=== PATIENT | male | born 1940 | race Caucasian/White ===

== ENCOUNTER → 2019-11-28 | Outpatient (CLI) | payer MEDICARE ==
[~2019-11-28] MED LIST: AMOX500C PO; ATOR40TA59 PO; CITA20TA6 PO; CLOP75TA PO; CYAN25008 PO; DIGO250T3 PO; GLYB5TAB3 PO; LEVO50TA PO; LOPE2CAP PO; METF500T16 PO; METO50TA6 PO; NIAC500C6 PO; OMEG100021 PO; WARF-31 PO; WARF7.5T45 PO
== END | disposition home or self-care (01) ==
LOC: LAB 11:26
PROVIDERS: ATTEND Dentist Oral and Maxillofacial Surgery
DX: Z11.59 Encounter for screening for other viral diseases (principal)
CPT/HCPCS: U0003-CS

== ENCOUNTER 2019-11-29 11:08 | Day surgery (SDC) | payer MEDICARE ==
[~2019-11-29] VITALS: Ht 165.1 cm; Wt 74.8 kg
[~2019-11-29 11:08] MED LIST changes: +DEXAMETHASONE SOD PHOS 4 MG/ML VIAL ONE; +HYDROmorphone 2 MG/ML VIAL IV PRN; +IV RINGERS,LACTATED 1000ML 1,000 ML IV SCH; +LIDOCAINE 2% PF 5 ML VIAL. ONE; +MORPHINE SULFATE 2 MG/ML VIAL. IV PRN; +ONDANSETRON PF 4 MG/2 ML VIAL. ONE; +PHENYLEPHRINE 0.5% NASAL SPRAY 15ML BOTTLE. NS ONE; +PHENYLEPHRINE 1% NASAL SPRAY 15ML BOTTLE. NS ONE; +PHENYLEPHRINE in 0.9% NACL PF 1 MG/10 ML SYRINGE. IV ONE; +PROCHLORPERAZINE 10 MG/2 ML VIAL. IV PRN; +PROPOFOL 10 MG/ML (20ML) VIAL. IV ONE; +ROCURONIUM 50 MG/5 ML VIAL. ONE; +SEVOFLURANE 61 TO 120 MINUTES. IH ONE; +SUCCINYLCHOLINE 200 MG/10 ML VIAL. ONE; +ePHEDrine PF IN SALINE 50 MG/10 ML SYRINGE. IV ONE; +fentaNYL PF VIAL 100 MCG/2 ML VIAL IV PRN; +fentaNYL PF VIAL 100 MCG/2 ML VIAL ONE
[2019-11-29] MEDS ORDERED: INSULIN LISPRO 100 UNIT/ML 3ML VIAL for OP,RR ONLY. SQ PRN (11:45)
[2019-11-29] MEDS ORDERED: INSULIN LISPRO 100 UNIT/ML 3ML VIAL for OP,RR ONLY. SQ ONE (11:45)
[2019-11-29] MEDS ORDERED: BUPIVACAINE-EPI 0.5%-1:200000 MPF 30 ML VIAL. ONE (11:46)
[2019-11-29] MEDS ORDERED: GELATIN SPONGE SIZE 100. ONE (11:46)
[2019-11-29 12:05] LABS: PROTHROMBIN TIME PATIENT 22.3 SEC (11.7-14.0)
[2019-11-29] MEDS ORDERED: BACITRACIN 50,000 UNIT in IV NORMAL SALINE 500ML BAG 500 ML IRR ONE (14:00)
[2019-11-29] MEDS ORDERED: NEOSTIGMINE METHYLSULFATE 5 MG/5 ML SYRINGE. ONE (14:13)
[2019-11-29] MEDS ORDERED: GLYCOPYRROLATE 1 MG/5 ML VIAL. ONE (14:13)
--- NOTE | 2019-11-29 15:02 | PDOC4 ---
OPERATIVE NOTE Date: Date: Nov 29, 2019 Pre-Op Diagnosis: Aortic stenosis caries, non restorable dentition #3, 5, 7, 10, 13, 14, 18, 29, 30, 31 Post-Op Diagnosis: same Procedure Performed: removal of caries, non restorable dentition #3, 5, 7, 10, 13, 14, 18, 29, 30, 31 Surgeon: philippe Anesthesia Type: monica Blood Loss: 50 Specimans Obtained: none teeth disposed of in OR Findings: see dictation Removal of caries, non restorable dentition #3, 5, 7, 10, 13, 14, 18, 29, 30, 31 Complications: none Operative Note: see JUAN ANTONIO Lozada DMD Nov 29, 2019 15:02
[2019-11-29 16:06] VITALS: BP 149/47
[2019-11-29] MEDS ORDERED: ALBUTEROL SULFATE 2.5 MG/3 ML NEBU. ONE (16:41)
[2019-11-29] MEDS ORDERED: ALBUTEROL SULFATE 2.5 MG/3 ML NEBU. NEB ONE (16:45)
--- NOTE | 2019-11-29 18:03 | OP ---
DATE OF SURGERY: 11/29/2019 OPERATING SERVICE: laminator printed circuit boards. ATTENDING PHYSICIAN: Miller Sears DMD. PREOPERATIVE DIAGNOSES: 1. The patient has severe aortic stenosis with grade 3/6 holosystolic murmur. He has been deemed to have a need for aortic valve replacement intraoperatively here later in November, his cardiac surgeon has requested that this be addressed here urgently and he has nonrestorable teeth that are at risk for infection of the valve. 2. Nonrestorable teeth numbers 3, 5, 7, 10, 13, 14, 18, 29, 30 and 31. POSTOPERATIVE DIAGNOSES: 1. The patient has severe aortic stenosis with grade 3/6 holosystolic murmur. He has been deemed to have a need for aortic valve replacement intraoperatively here later in November, his cardiac surgeon has requested that this be addressed here urgently and he has nonrestorable teeth that are at risk for infection of the valve. 2. Nonrestorable teeth numbers 3, 5, 7, 10, 13, 14, 18, 29, 30 and 31. PROCEDURE PERFORMED: 1. General anesthetic. 2. Extraction of teeth number 3, 5, 7, 10, 13, 14, 18, 29, 30 and 31. BRIEF HISTORY: The patient is a 79-year-old male referred to our clinic by his general dentist. He has a history of aortic stenosis, which has been worsening and his ejection fraction has had some compromise, his holosystolic murmur is present. The patient is aware of the situation. His cardiothoracic surgeon has refused to operate without removal of the necrotic nonrestorable teeth. He has multiple of these teeth. These teeth are mentioned in the procedures performed, please note. We performed the history and physical in our clinic. Permit was obtained and the patient was scheduled for escalation in the setting of care to the operating room at [facility]. ESTIMATED BLOOD LOSS: Approximately 50 mL. SPECIMEN SENT: None. Teeth were disposed off in the OR. DRAINS PLACED: None. COMPLICATIONS: None noted at the time of surgery. OPERATIVE DESCRIPTION: After the history and physical was updated in the preoperative holding area, the patient was transported by the Anesthesia Service to the operating suite, placed in the supine position. General anesthesia was induced. The patient was then intubated with an oral intubation, which was secured to the patient's left side of the face. Timeout was initiated by surgical staff and all perioperative staff was in agreeance. The surgery began with the placement of a moistened throat pack in the oropharynx. Peridex was placed to cleanse the mouth. Local anesthesia was administered in the form of 0.5% Marcaine, 1:200,000 epinephrine. Initially, 20 mL were administered at the beginning of the surgery and at the culmination of the surgery, an additional 10 mL were administered. The surgery began in the upper right and lower right hand quadrant with a #15 blade. The aforementioned teeth were incised with the buccal mucosa to create a full thickness mucoperiosteal flap, which was reflected buccally with a periosteal elevator, mucoperiosteal flap. The surgery continued on the upper right, lower right, upper left and lower left sites teeth that were removed were teeth numbers 3, 5, 7, 10, 13, 14, 18, 29, 30 and 31. Rotary instrumentation was utilized in the removal of these teeth. The minor alveoloplasty was performed in all sites to avoid any bony undercuts and sharp edges. The sites were then curetted and all periapical granulomatous tissue was removed. The sites were then lavaged and suctioned with copious normal sterile saline. Each site was then packed with Gelfoam and oversewn with 3-0 chromic gut sutures in a running locked fashion and [id number] fashion. At this time, the culmination of the procedure was reached and the patient was found to be hemostatic. The mouth was then lavaged and suctioned including the oropharynx. The moistened throat pack was then removed. An OG was passed and the stomach was decompressed and the patient was then returned to the care of Anesthesia, where he was awakened and extubated without complication and transported to the PACU in stable condition. MILLER SEARS DMD DR: Jaya JOB#: [id number] / [id number]
== END 2019-11-29 16:57 | disposition home or self-care (01) ==
LOC: SURG 11:08
PROVIDERS: ATTEND Dentist Oral and Maxillofacial Surgery
DX: K02.9 Dental caries, unspecified (principal); I25.10 Atherosclerotic heart disease of native coronary artery without angina pectoris; I48.91 Unspecified atrial fibrillation; I10 Essential (primary) hypertension; E78.00 Pure hypercholesterolemia, unspecified; G47.30 Sleep apnea, unspecified; E11.9 Type 2 diabetes mellitus without complications; E89.0 Postprocedural hypothyroidism; F32.9 Major depressive disorder, single episode, unspecified; Z79.01 Long term (current) use of anticoagulants; Z79.899 Other long term (current) drug therapy; Z95.0 Presence of cardiac pacemaker; Z72.89 Other problems related to lifestyle; Z85.038 Personal history of other malignant neoplasm of large intestine; Z79.84 Long term (current) use of oral hypoglycemic drugs
CPT/HCPCS: 36415; 41874; 82962; 85610; 85730; 94640; A7015; J0330; J0696; J1100; J1815; J2370; J2405; J2704; J2710; J3010; J3490; J7040; J7613